=== PATIENT | male | born 1980 | race Two or more races ===

== ENCOUNTER → 2023-04-03 | Outpatient (CLI) | payer BC | LOC: M WUC 13:28 | PROVIDERS: ATTEND Physician Assistant | DX: M25.511 Pain in right shoulder (principal) ==

== ENCOUNTER → 2023-04-10 | Outpatient (CLI) | payer BC | LOC: M RAD 15:56 | PROVIDERS: ATTEND Physician Assistant | DX: J32.8 Other chronic sinusitis (principal); J34.2 Deviated nasal septum; J34.89 Other specified disorders of nose and nasal sinuses ==

== ENCOUNTER 2023-06-03 07:43 | Day surgery (SDC) | payer BC, OTHER ==
[~2023-06-03] VITALS: Ht 177.8 cm; Wt 90.9 kg
[~2023-06-03 07:43] MED LIST: FLON1SPR; LEVO112C PO; LIDOCAINE 2% 100MG/5ML SDV (FOR ANES.) As Ordered ONE; LIPI20TA PO; propofoL 200 MG/20 ML VIAL As Ordered ONE
[2023-06-03] MEDS: NS 1,000 ML IV ONE (07:56)
[2023-06-03 09:13] VITALS: BP 125/74; TEMP 97.9; O2SAT 97
== END 2023-06-03 09:15 | disposition home or self-care (01) ==
LOC: M OPP 07:43
PROVIDERS: ATTEND Internal Medicine Gastroenterology
DX: K64.4 Residual hemorrhoidal skin tags (principal); K64.8 Other hemorrhoids; K52.89 Other specified noninfective gastroenteritis and colitis; R19.4 Change in bowel habit; R19.7 Diarrhea, unspecified; Z79.02 Long term (current) use of antithrombotics/antiplatelets; Z79.1 Long term (current) use of non-steroidal anti-inflammatories (NSAID); Z79.51 Long term (current) use of inhaled steroids; Z79.890 Hormone replacement therapy; Z79.899 Other long term (current) drug therapy

== ENCOUNTER → 2024-05-20 | Outpatient (REF) | payer BC ==
[~2024-05-20] MED LIST changes: -LIDOCAINE 2% 100MG/5ML SDV (FOR ANES.) As Ordered ONE; -propofoL 200 MG/20 ML VIAL As Ordered ONE
== END ==
LOC: M SFHCADAM 14:33
PROVIDERS: ATTEND Nurse Practitioner Family
DX: L40.9 Psoriasis, unspecified (principal); Z53.9 Procedure and treatment not carried out, unspecified reason

== ENCOUNTER → 2025-03-17 | Outpatient (REF) | payer BC ==
[~2025-03-17] MED LIST changes: -LEVO112C PO; +LEVO112C2 PO
== END ==
LOC: M SFHCADAM 14:31
PROVIDERS: ATTEND Nurse Practitioner Family
DX: Z53.9 Procedure and treatment not carried out, unspecified reason (principal)